=== PATIENT | male | born 1990 | race African-American/Black ===

== ENCOUNTER 2017-01-02 09:51 | Emergency (ER) | payer OTHER | END 2017-01-02 09:53 | disposition home or self-care (01) | LOC: CFTX 09:51 | DX: D22.0 Melanocytic nevi of lip (principal); R03.0 Elevated blood-pressure reading, without diagnosis of hypertension | CPT/HCPCS: 99282 ==

== ENCOUNTER → 2017-07-18 | Outpatient (CLI) | payer OTHER ==
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
== END | disposition home or self-care (01) ==
LOC: CRAD 13:14
DX: M54.2 Cervicalgia (principal)
CPT/HCPCS: 72040